=== PATIENT | male | born 1985 | race Caucasian/White ===

== ENCOUNTER 2017-09-20 09:52 | Emergency (ER) | payer OTHER ==
[~2017-09-20] VITALS: Ht 193 cm; Wt 89.6 kg
[~2017-09-20 09:52] MED LIST: IBUP600T44 PO; OXYC-57 PO
[2017-09-20 09:53] VITALS: TEMP 37; Ht 193 cm; Wt 89.6 kg
[2017-09-20] MEDS ORDERED: LIDO/EPINEPHRINE/SOD BICARB 20 ML VIAL INFIL ONE (10:15)
[2017-09-20] MEDS ORDERED: CITA10TA8 PO (10:40)
--- NOTE | 2017-09-20 11:20 | DIAGNOSTIC IMAGING REPORT ---
CT OF THE HEAD WITHOUT CONTRAST CLINICAL HISTORY: struck head with laceration, then syncopal episode COMPARISON STUDY: No previous studies for comparison. CT DOSE: 537.48 mGy.cm TECHNIQUE: Helical axial images of the head were obtained without IV contrast. Automated exposure control was utilized for the study. A dose lowering technique was utilized adhering to the principles of ALARA. FINDINGS: No acute intracranial hemorrhage, midline shift or mass effect is present. Brain volume is normal. Ventricular system is normal. Basilar cisterns are patent. There are no extra-axial collections. Xiao-white differentiation is maintained. There is no calvarial fracture. Visualized portions of the sinuses and mastoid air cells are clear. IMPRESSION: No acute intracranial findings. Electronically signed by: Toñito Hoang M.D. 09/20/2017 11:19 AM Dictated Date/Time: 09/20/2017 11:16 AM
[2017-09-20 12:44] VITALS: BP 145/83; PULSE 62; O2SAT 99
--- NOTE | 2017-09-21 15:54 | EMERGENCY ROOM VISIT NOTE ---
ED Visit Note First contact with patient: 10:00 Chief Complaint: I cut my head and then passed out. History of Present Illness: Mr. López is a 32-year-old white male who ambulates into the ED accompanied by his girlfriend complaining of a scalp laceration. Patient reports approximately one hour ago he was helping remodel his kitchen and had just put a cabinet down. He stood up and struck his head off a piece of the elevation that would be going over the stove and sustained a laceration. His girlfriend reports that she put a cloth to help control the bleeding on his forehead and then went upstairs to grab something because she felt he needed to come the hospital for possible room repair. She reports she then heard a thud and when she went downstairs she could see his him lying on the floor with his bloody handprint streaking on the wall where he lying on the floor. Historically patient reports he does not like seeing his own blood and has had near syncopal episodes in the past from seeing his blood. Girlfriend reports she immediately woke up when she got downstairs and was acting appropriately. They drove to the hospital and he reports he felt slightly nauseated but did not vomit. Currently patient is complaining of a stinging pain over his scalp laceration. He rates his discomfort 3/10. His pain is nonradiating. His pain worsens with palpation. He has not identified any alleviating factors related to the pain. He has not taken any medications for pain prior to arrival at the hospital. He denies any associated headache, dizziness, lightheadedness, visual changes, hearing changes, difficulty speaking, difficulty swallowing, difficulty ambulating/coordinating body movements, neck pain, nausea, vomiting, extremity weakness/numbness/tingling. Review of Systems: As noted above in history of present illness. 8 body systems were reviewed and found to be negative as noted above. Past Medical History: Celiac's disease, status post unspecified shoulder surgery , appendectomy. Current Medications: Celexa. Allergies to Medications: Gluten. Social History: Patient is currently employed; he feels safe in his home environment; he denies tobacco use. Tetanus Immunization Status: Patient reports up-to-date. Physical Examination: Vital Signs: Date Time Temp Pulse Resp B/P (MAP) Pulse Ox O2 Delivery O2 Flow Rate FiO2 2/3/18 12:44 62 20 145/83 99 09/20/17 11:15 62 20 140/80 99 Room Air 09/20/17 09:53 37.0 61 17 120/73 97 Room Air GENERAL: 32-year-old male in mild to moderate distress due to pain, nontoxic- appearing, afebrile and hemodynamically stable. NEUROLOGICAL: Awake, alert and oriented to person, place and time. Answering questions appropriately and following commands. Normal gait. Good hand eye coordination. Cranial nerves II through XII grossly intact. Good short-term and long-term recall. No focal motor sensory deficits. SKIN: Warm, dry and pink. Scalp: Over the crown of the head patient has a 3.3 cm full-thickness laceration. No active bleeding. It was also noted patient had a superficial abrasion just superior to the nose between the eyebrows. No active bleeding. HEENT: Atraumatic and normocephalic. Skull: No bony deformity, bony crepitus, swelling or ecchymosis. No raccoon's eyes or cruz signs. No drainage from the ears of the nostril; no hemotympanum. Face: No bony tenderness, swelling or ecchymosis. PERRLA. EOMI without nystagmus. Sclera white and conjunctiva pink. No malocclusion. No intraoral trauma. Airway patent. Speech is normal and clear. Trachea midline. No jugular venous distention. BACK: No tenderness over the bony cervical and thoracic spine. Full range of motion of the cervical spine. ED Course: Patient is assessed as noted above. Patient's medication list was reviewed. Head CT: Was reviewed by myself and read by the radiologist showing no acute intracranial abnormalities or skull fractures. Wound Repair: Complexity: Basic Verbal consent was obtained after the risks and benefits were explained. The skin was prepped with betadine and a sterile field set. Wound edges of the wound was anesthetized with 4.2 ml buffered 1% lidocaine with epinephrine. The wound was explored for foreign bodies and none found. Copious irrigation was performed using sterile saline. With direct pressure the bleeding subsided. Debridement was not performed. The wound edges were approximated using 7 zuhair. Hemostasis and excellent approximation was achieved. Antibacterial ointment and a sterile dressing applied. No complications and the patient tolerated the procedure well. Patient's midfrontal abrasion was cleansed and covered with a small amount of antibiotic ointment. Patient was educated about tonight's findings and instructed on his treatment plan; he verbalizes understanding and agreement with this plan. Clinical Impression: Laceration of the scalp. Disposition: Patient discharged home in stable condition; prior to departure he was reassessed and subjectively reported he was pain and symptom-free. Plan: Comfort measures, wound care, and signs of infection were discussed with the patient. A yuliya was educated on signs of head injury. Patient was encouraged to follow-up with PCP or return to the ED for signs of infection and/or staple removal in 10-12 days. LATE NOTE: After the patient was discharge I was doing my notes and realized I had ordered an EKG on the patient that I did not review prior to his discharge. That EKG showed sinus bradycardia with sinus arrhythmia. 56 bpm. There was a right bundle-branch block. There was no schemata changes. I was not able to find any additional EKGs for comparison. I did review this with Dr. Sanchez and we both felt that there was no follow-up required at this time.
== END 2017-09-20 12:46 | disposition home or self-care (01) ==
LOC: C.EDB 09:54 → C.EDA 12:46
DX: S01.01XA Laceration without foreign body of scalp, initial encounter (principal); W22.09XA Striking against other stationary object, initial encounter; K90.0 Celiac disease; Z79.899 Other long term (current) drug therapy